=== PATIENT | female | born 1955 | race Caucasian/White ===

== ENCOUNTER → 2017-08-12 | Outpatient (CLI) | payer BC ==
[2017-08-12 11:57] LABS: Non-African American GFR(MDRD) >60 (>60 ml/min/1.73 sqM)
--- NOTE | 2017-08-12 12:01 | WWHP ---
[facility] - HISTORY AND PHYSICAL DATE OF DICTATION: 08/12/2017 CHIEF COMPLAINT: The patient is here for her routine gynecologic exam and mammogram. HPI: This is a 61-year-old G2, P2, with an LMP of 2002. The patient is without gynecologic complaints and denies any postmenopausal bleeding. The patient was diagnosed with osteoporosis with bone density testing last year. Fosamax was offered to the patient, but she did not start this. She is now interested in starting Fosamax for the osteoporosis. PAST MEDICAL HISTORY: Hypothyroidism, elevated cholesterol, depression, anxiety, migraine headaches, osteoporosis, and possible TIA in the past. PAST MEDICATIONS: 1. Simvastatin 40 mg daily. 2. Levothyroxine 100 mcg daily. 3. Citalopram 20 mg daily. 4. Aspirin 81 mg daily. 5. Vitamin D3 five thousand units every other day. ALLERGIES: No known drug allergies. PAST SURGICAL HISTORY: Tubal ligation and colonoscopy with upper endoscopy in 2014. 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 SOCIAL HISTORY: She denies tobacco and drug use and has about 3 alcohol containing drinks per month. She has been since 1976 and does not work outside the home. She has 2 grandchildren. FAMILY HISTORY: Father has coronary artery disease. Brother had an PR. Mother had a possible CVA. Brother of esophageal cancer. Paternal grandmother had breast cancer and a paternal grandmother had breast cancer. REVIEW OF SYSTEMS: Weight has been stable. She denies respiratory, cardiac or GI problems. PHYSICAL EXAM: Blood pressure 111/73, height 5 feet 6 inches, weight 161 pounds. BMI 26. Temperature 97.5, pulse 66. This is a well-developed, well-nourished, white female, who is alert and oriented x3, in no acute distress. HEENT is within normal limits. NECK: Supple without mass or thyromegaly. Chest and. LUNGS: Clear to auscultation. HEART: Regular rate and rhythm. Breasts are without mass or discharge. Axillary exam is negative for adenopathy. Back negative for CVA tenderness. ABDOMEN: Soft, nontender, without palpable masses. PELVIC EXAM: External genitalia reveals mild atrophy without lesions. Cervix and vagina reveals mild atrophy without lesions. There is no evidence of prolapse. The uterus is mid position, nongravid size and nontender. There are no palpable adnexal masses or tenderness. Rectovaginal exam is negative for mass or tenderness and is negative for occult blood. EXTREMITIES: Nontender. IMPRESSION: 1. A 61-year-old menopausal female with normal gynecologic exam. 2. History of osteoporosis. PLAN: 1. Pap smear was deferred since she had a normal one last year. 2. Self breast examination was discussed. 3. Mammogram will be done today. 4. We have had a long discussion regarding osteoporosis treatment. We have discussed possible risks of Fosamax including osteonecrosis of the jaw. We have also discussed risks of esophageal ulceration and I have stressed the importance of taking it according to the directions given. She would like to start Fosamax. Blood work today will include calcium level and creatinine. If these are normal, she will be started on Fosamax 70 mg 1 p.o. weekly and instructions on its use was given to the patient. 5. She will return in 1 year and we will plan on repeating bone density testing at that time. MMODL / IJN: [id number] /
--- NOTE | 2017-08-13 10:52 | MM ---
Reason for exam: screening (asymptomatic). Last mammogram was performed 1 year and 1 month ago. History: Patient is postmenopausal. Family history of breast cancer in maternal grandmother at age 30 and breast cancer in paternal grandmother at age 80. Physical Findings: A clinical breast exam by your physician is recommended on an annual basis and results should be correlated with mammographic findings. MG Screening Mammo w CAD Bilateral CC and MLO view(s) were taken. Prior study comparison: July 19, 2016, bilateral MG diagnostic mammo w CAD [facility]. July 17, 2015, bilateral MG screening mammo w CAD. The breast tissue is heterogeneously dense. This may lower the sensitivity of mammography. No significant changes when compared with prior studies. ASSESSMENT: Benign, BI-RAD 2 RECOMMENDATION: Routine screening mammogram of both breasts in 1 year.
== END | disposition home or self-care (01) ==
LOC: WWCWWP 10:09
PROVIDERS: ATTEND Obstetrics & Gynecology
DX: Z12.31 Encounter for screening mammogram for malignant neoplasm of breast (principal); M81.0 Age-related osteoporosis without current pathological fracture
CPT/HCPCS: 82310; 82565; 36415; G0202

== ENCOUNTER → 2018-07-21 | Outpatient (CLI) | payer BC ==
--- NOTE | 2018-07-21 14:09 | XR ---
2 view abdomen HISTORY: Constipation 2 views of the abdomen No comparisons Lung bases are clear. There is no evident pneumoperitoneum or bowel obstruction. Retained fecal debri s present throughout the distribution of the large bowel. Probable vascular calcifications in the pel vis. IMPRESSION: Correlate for fecal stasis.
== END | disposition home or self-care (01) ==
LOC: RADXRMAIN 09:52
PROVIDERS: ATTEND Family Medicine
DX: K59.09 Other constipation (principal)
CPT/HCPCS: 74019

== ENCOUNTER → 2018-08-18 | Outpatient (CLI) | payer BC ==
[2018-08-18 08:05] VITALS: BP 108/71; PULSE 72; TEMP 98; BMI 26.4
--- NOTE | 2018-08-18 08:38 | P.HPOB ---
History of Present Illness H&P Date: 08/18/18 Chief Complaint: The patient is here for her routine gynecologic exam and mammogram. This is a 62-year-old with LMP of 2002. The patient is without gynecologic complaints and denies any postmenopausal bleeding. The patient was started on Fosamax one year ago. Her prescription recently ran out. Review of Systems The patient has gained 3 pounds over the last year. She denies respiratory or cardiac problems. G.I.: occasional constipation. Past Medical History Past Medical History: CVA/TIA (Possible TIA in the past.), Hyperlipidemia, Thyroid Disorder (Hypothyroid) Additional Past Medical History / Comment(s): Migraine headaches and osteoporosis. 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 History of Any Multi-Drug Resistant Organisms: None Reported Past Surgical History: Tubal Ligation Additional Past Surgical History / Comment(s): Colonoscopy and upper endoscopy in 2014. Past Anesthesia/Blood Transfusion Reactions: No Reported Reaction, Motion Sickness Past Psychological History: Anxiety, Depression Smoking Status: Never smoker Past Alcohol Use History: Occasional (3 per month.) Past Drug Use History: None Reported Additional History: She has been since 1976 and does not work outside of the home. - Past Family History Brother(s) Family Medical History: Cancer (Esophageal), Myocardial Infarction ([place]) Father Family Medical History: Coronary Artery Disease (CAD) Additional Family Medical History / Comment(s): Paternal grand mother had breast cancer. Mother Family Medical History: CVA/TIA Medications and Allergies Home Medications Medication Instructions Recorded Confirmed Type Citalopram Hydrobromide [CeleXA] 20 mg PO DAILY 11/14/14 08/18/18 History Levothyroxine Sodium [Synthroid] 88 mcg PO DAILY 02/11/15 08/18/18 History Aspirin EC [Ecotrin] 81 mg PO DAILY tablet. 02/12/15 08/18/18 Rx Alendronate Sodium [Fosamax] 70 mg PO WEEKLY 08/18/18 08/18/18 History Cholecalciferol (Vitamin D3) 2,000 unit PO DAILY 08/18/18 08/18/18 History [Vitamin D3] Allergies Allergy/AdvReac Type Severity Reaction Status Date / Time No Known Allergies Allergy Verified 08/18/18 07:58 Exam Vital Signs Temp Pulse BP 08/18/18 07:56 98.0 F 72 108/71 Intake and Output 08/17/18 08/18/18 08/18/18 22:59 06:59 14:59 Other: Weight 74.389 kg Height 5'6", weight 164 pounds, BMI 26.5. This is a well-developed well-nourished white female who is alert and oriented times 3 in no acute distress. HEENT: Within normal limits. NECK: Supple without mass or thyromegaly. CHEST AND LUNGS: Clear to auscultation. HEART: Regular rate and rhythm. BREASTS: Are without mass or discharge. AXILLARY EXAM: Negative for adenopathy. BACK: Negative for CVA tenderness. ABDOMEN: Soft, nontender, without palpable masses. PELVIC EXAM: Normal external genitalia with mild atrophy. Cervix and vagina appear normal with mild atrophy. There is no unusual discharge. There is no evidence of prolapse. The uterus is midposition, nongravid size and nontender. There are no palpable adnexal masses or tenderness. RECTAL EXAM: rectovaginal exam is negative for mass or tenderness and is negative for occult blood. EXTREMITIES: Nontender. IMPRESSION: 1. 62-year-old menopausal female with normal gynecologic exam. 2. History of osteoporosis and has been on Fosamax for one year. PLAN: 1. Pap smear was performed. 2. Self breast awareness was discussed with the patient. 3. Screening mammogram will be done today. 4. Osteoporosis management was discussed. She will continue on Fosamax. Bone density testing will be done today. I have also stressed the importance of adequate calcium, vitamin D and regular exercise. 5. The electronic prescription for Fosamax will be sent to [facility]. 6. She will return in one year.
--- NOTE | 2018-08-18 17:31 | BD ---
EXAMINATION TYPE: Axial Bone Density DATE OF EXAM: 08/18/2018 COMPARISON: 07.19.2016 CLINICAL HISTORY: 62 YR OLD FEMALE....ICD-10 CODE: Z78.0 POST MENOPAUSAL W/O HRT Height: 65.5 Weight: 157 FRAX RISK QUESTIONS: NOTHING TO NOTE HERE RISK FACTORS HISTORY OF: Active: YES Diet low in dairy products/other sources of calcium: YES Postmenopausal woman: YES AT AGE 46 MEDICATIONS: Thyroid Medications: YES, SYNTHROID, FOR ABOUT 15-20 YRS Osteoporosis Medications: YES, FOSAMAX, FOR 1 YR Additional Medications: CELEXA, REFLUX MEDS, STATIN FOR CHOLESTEROL, VIT D Additional History: NOTHING ADDITIONAL TO NOTE EXAM MEASUREMENTS: Bone mineral densitometry was performed using the [employer] System. Bone mineral density as measured about the Lumbar spine is: ----- L1-L4(G/cm2): 1.049 T Score Values are as follows: ----- L1: -1.5 ----- L2: -1.4 ----- L3: -0.8 ----- L4: -0.9 ----- L1-L4: -1.1 Bone mineral density has: Increased 3.4% since study of: 07.19.2016 Bone mineral density about the R hip (g/cm2): 0.739 Bone mineral density about the L hip (g/cm2): 0.729 T Score values are as follows: -----R Neck: -2.5 -----L Neck: -2.3 -----R Total: -2.1 -----L Total: -2.2 Bone mineral density has: Increased 5.8% since study of: 07.19.2016 FRAX%s: THERE IS A 12.5% CHANCE FOR A MAJOR OSTEOPOROTIC FX AND A 2.4% FOR HIP FX....PROBABILITY O F FX IN 10 YRS TIME IMPRESSION: Osteopenia (T Score between -2.5 and -1). There is slightly increased risk of fracture and the patient may be considered for treatment. Re-Screen 2-5 years. NOTE: T-SCORE=SD OF THE YOUNG ADULT MEAN.
--- NOTE | 2018-08-19 14:59 | MM ---
Reason for exam: screening (asymptomatic). Last mammogram was performed 1 year ago. History: Patient is postmenopausal. Family history of breast cancer in maternal grandmother at age 30 and breast cancer in paternal grandmother at age 80. Physical Findings: A clinical breast exam by your physician is recommended on an annual basis and results should be correlated with mammographic findings. MG 3D Screening Mammo W/Cad Bilateral CC and MLO view(s) were taken. Prior study comparison: August 12, 2017, bilateral MG screening mammo w CAD. July 19, 2016, bilateral MG diagnostic mammo w CAD [facility]. The breast tissue is heterogeneously dense. This may lower the sensitivity of mammography. There is no discrete abnormality. No significant changes when compared with prior studies. ASSESSMENT: Benign, BI-RAD 2 RECOMMENDATION: Routine screening mammogram of both breasts in 1 year.
--- NOTE | 2018-08-25 13:38 | P.PN ---
Progress Note - Text Progress Note Date: 08/25/18 OUTPATIENT FOLLOW-UP NOTE TEST(S)/RESULTS: test results from 08/18/2018 include negative Pap smear, benign mammogram and bone density test which shows osteopenia with increases of 3.4% and 5.8% in the spine and hip measurements, respectively. METHOD OF NOTIFICATION: the patient was notified by phone. PATIENT COMMENTS: she is happy to hear these results. DIAGNOSIS: negative Pap smear, benign mammogram and history of osteoporosis with bone density improvement on alendronate for one year. DISCUSSION: we have discussed how we will plan to keep her on the alendronate for total of 3 to 5 years. I have also stressed the importance of getting adequate calcium, vitamin D and regular exercise. PLAN: will plan on repeating the bone density test in 2 to 3 years.
== END ==
LOC: WWCWWP 07:45
PROVIDERS: ATTEND Obstetrics & Gynecology
DX: M85.80 Other specified disorders of bone density and structure, unspecified site (principal); Z12.31 Encounter for screening mammogram for malignant neoplasm of breast; Z78.0 Asymptomatic menopausal state
CPT/HCPCS: 77063; 77067; 77080

== ENCOUNTER → 2019-08-24 | Outpatient (CLI) | payer BC ==
[2019-08-24 08:13] VITALS: BP 123/74; PULSE 68; RESP 16; TEMP 98.5
--- NOTE | 2019-08-24 08:44 | P.HPOB ---
History of Present Illness H&P Date: 08/24/19 Chief Complaint: The patient is here for her routine gynecologic exam and ma mmogram. This is a 63-year-old with an LMP of 2002. The patient is without gynecologic complaints and denies any postmenopausal bleeding. Review of Systems The patient's weight has been stable over the last year. She denies respiratory, cardiac, or G.I. problems. Past Medical History Past Medical History: CVA/TIA, Hyperlipidemia, Thyroid Disorder Additional Past Medical History / Comment(s): Possible TIA in the past. Hypothyroidism. Migraine headaches and osteoporosis(Rx 08/08). 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 History of Any Multi-Drug Resistant Organisms: None Reported Past Surgical History: Tubal Ligation Additional Past Surgical History / Comment(s): Colonoscopy and upper endoscopy in 2014. Past Anesthesia/Blood Transfusion Reactions: No Reported Reaction, Motion Sick ness Past Psychological History: Anxiety, Depression Smoking Status: Never smoker Past Alcohol Use History: Occasional (4-7 per week) Past Drug Use History: None Reported Additional History: She is been since 1976 and does not work outside the home. - Past Family History Father Family Medical History: Coronary Artery Disease (CAD) Additional Family Medical History / Comment(s): Paternal grand mother had breast cancer. Mother Family Medical History: CVA/TIA Brother(s) Family Medical History: Cancer, Myocardial Infarction ([place]) Additional Family Medical History / Comment(s): Esophageal cancer. Medications and Allergies Home Medications Medication Instructions Recorded Confirmed Type Citalopram Hydrobromide [CeleXA] 20 mg PO DAILY 11/14/14 08/24/19 History Levothyroxine Sodium [Synthroid] 88 mcg PO DAILY 02/11/15 08/24/19 History Aspirin EC [Ecotrin] 81 mg PO DAILY tablet. 02/12/15 08/24/19 Rx Alendronate Sodium [Fosamax] 70 mg PO WEEKLY #12 tablet 08/18/18 08/24/19 Rx Cholecalciferol (Vitamin D3) 1,000 unit PO DAILY 08/18/18 08/24/19 History [Vitamin D3] Simvastatin 40 mg PO DAILY 08/24/19 08/24/19 History Allergies Allergy/AdvReac Type Severity Reaction Status Date / Time No Known Allergies Allergy Verified 08/24/19 08:06 Exam Vital Signs Temp Pulse Resp BP Pulse Ox 08/24/19 08:11 98.5 F 68 16 123/74 97 Intake and Output 08/23/19 08/24/19 08/24/19 22:59 06:59 14:59 Other: Weight 73.482 kg Height 5 feet 6 inches, weight 162 pounds, BMI 26.1. This is a well-developed well-nourished white female who is alert and oriented times 3 in no acute distress. HEENT: Within normal limits. NECK: Supple without mass or thyromegaly. CHEST AND LUNGS: Clear to auscultation. HEART: Regular rate and rhythm. BREASTS: Are without mass or discharge. AXILLARY EXAM: Negative for adenopathy. BACK: Negative for CVA tenderness. ABDOMEN: Soft, nontender, without palpable masses. PELVIC EXAM: Normal external genitalia with mild atrophy. Cervix and vagina appear normal mild atrophy. There is no unusual discharge. There is a grade 2 uterine prolapse and grade 1-2 cystocele. The uterus is midposition, nongravid size and nontender. There are no palpable adnexal masses or tenderness. RECTAL EXAM: Rectovaginal exam is negative for mass or tenderness and is negative for occult blood. EXTREMITIES: Nontender. IMPRESSION: 1. 63-year-old menopausal female with a symptomatic grade 2 uterine prolapse and grade 1-2 cystocele. 2. History of osteoporosis on alendronate since July 2017. PLAN: 1. Pap smear was deferred since she had a normal one on 08/18/2018. 2. Self breast awareness was discussed with the patient. 3. Screening mammogram will be done today. 4. Osteoporosis prevention was discussed. I have stressed the importance of adequate calcium, vitamin D and regular exercise. Recommended amounts of calcium and vitamin D were also discussed. She will continue alendronate. The electronic prescription will be sent to [facility]. We will plan on repeating bone density testing in 1-2 years since it was last done on 08/18/2018. 5. She was notified about the slight uterine prolapse. This will be managed conservatively. 6. She was advised to return in one year for her annual well woman exam.
--- NOTE | 2019-08-25 10:23 | MM ---
Reason for exam: screening (asymptomatic). Last mammogram was performed 1 year ago. History: Patient is postmenopausal. Family history of breast cancer in maternal grandmother at age 30 and breast cancer in paternal grandmother at age 80. Physical Findings: A clinical breast exam by your physician is recommended on an annual basis and results should be correlated with mammographic findings. MG Screening Mammo w CAD Bilateral CC and MLO view(s) were taken. Prior study comparison: August 18, 2018, bilateral MG 3d screening mammo w/cad. August 12, 2017, bilateral MG screening mammo w CAD. The breast tissue is heterogeneously dense. This may lower the sensitivity of mammography. There is no discrete abnormality. No significant changes when compared with prior studies. ASSESSMENT: Negative, BI-RAD 1 RECOMMENDATION: Routine screening mammogram of both breasts in 1 year.
== END | disposition home or self-care (01) ==
LOC: WWCWWP 07:55
PROVIDERS: ATTEND Obstetrics & Gynecology
DX: Z12.31 Encounter for screening mammogram for malignant neoplasm of breast (principal)
CPT/HCPCS: 77067

== ENCOUNTER 2019-11-03 09:54 | Day surgery (SDC) | payer BC ==
[2019-11-01 16:01] VITALS: BMI 26.4
[~2019-11-03 09:54] MED LIST: LACTATED RINGERS 1,000 ML IV SCH; LIDOCAINE 1% 20 ML VIAL (10MG/ML) FOR IV START INTRADERMA PRN
[2019-11-03 10:51] VITALS: RESP 16; TEMP 97.3
[2019-11-03] MEDS ORDERED: PROPOFOL 10 MG/ML 20 ML VIAL IV ONE (11:12)
--- NOTE | 2019-11-03 11:29 | P.PCN ---
Date of Procedure: 11/03/19 Procedure(s) Performed: BRIEF HISTORY: Patient is a 64-year-old pleasant female scheduled for an elective colonoscopy as a part of evaluation of change in bowel habits for the last 2 years duration. PROCEDURE PERFORMED: Colonoscopy. PREOPERATIVE DIAGNOSIS: Change in bowel habits. IV sedation per Anesthesia. PROCEDURE: After informed consent was obtained, the patient, was brought into the endoscopy unit. IV sedation was administered by Anesthesia under continuous monitoring. Digital rectal examination was normal. Initially the Olympus CF-160 flexible video colonoscope was then inserted in the rectum, gradually advanced into the cecum without any difficulty. Careful examination was performed as the scope was gradually being withdrawn. Ileocecal valve and the appendiceal orifice were visualized and appeared normal. Prep was excellent. Mucosa of the cecum, ascending colon, transverse colon, descending colon, sigmoid colon, and rectum appeared normal. Retroflexion was performed in the rectum and no lesions were seen. The patient tolerated the procedure well. IMPRESSION: Normal-appearing colon from rectum to cecum with no evidence of colitis or colorectal neoplasia . RECOMMENDATIONS: Findings of this examination were discussed with the patient as well as a family. She was advised to be a high-fiber diet and take fiber supplements a regular basis. She was advised to use [id number] osmotic laxatives as needed.. He can have a repeat screening colonoscopy in 10 years
[2019-11-03 12:01] VITALS: BP 128/60; PULSE 61
== END 2019-11-03 12:17 | disposition home or self-care (01) ==
LOC: ORWHC2ENDO 09:54
PROVIDERS: ATTEND Internal Medicine Gastroenterology
DX: R19.4 Change in bowel habit (principal); F32.9 Major depressive disorder, single episode, unspecified; Z79.82 Long term (current) use of aspirin; Z79.890 Hormone replacement therapy; Z79.899 Other long term (current) drug therapy; Z98.51 Tubal ligation status
CPT/HCPCS: 45378; J2704

== ENCOUNTER → 2020-09-12 | Outpatient (CLI) | payer BC ==
[2020-09-12 08:12] VITALS: BP 111/74; PULSE 83; RESP 18; TEMP 97.9
--- NOTE | 2020-09-12 08:47 | P.HPOB ---
History of Present Illness H&P Date: 09/12/20 Chief Complaint: The patient is here for her routine gynecologic exam and ma mmogram. This is a 64-year-old with an LMP of 2002. The patient is without gynecologic complaints and denies any postmenopausal bleeding. Review of Systems The patient has gained 4 pounds over the last year. She denies respiratory, cardiac, or G.I. problems. Past Medical History Past Medical History: CVA/TIA, GERD/Reflux, Hyperlipidemia, Musculoskeletal Disorder, Thyroid Disorder Additional Past Medical History / Comment(s): Possible TIA in the past. Hypothyroidism. Old hx Migraine CASEY. Oosteoporosis (Rx 08/08). Chronic Constipation. 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 Cryotherapy of the cervix in her 20s. History of Any Multi-Drug Resistant Organisms: None Reported Past Surgical History: Tubal Ligation Additional Past Surgical History / Comment(s): Colonoscopy, and upper endoscopy in 2014. Cataracts Past Anesthesia/Blood Transfusion Reactions: No Reported Reaction, Motion Sickness Past Psychological History: Anxiety, Depression Smoking Status: Never smoker Past Alcohol Use History: Occasional (4 per week) Past Drug Use History: None Reported Additional History: She has been since 1976 and is retired. - Past Family History Father Family Medical History: Coronary Artery Disease (CAD) Additional Family Medical History / Comment(s): Paternal grand mother had breast cancer. Mother Family Medical History: CVA/TIA Brother(s) Family Medical History: Cancer, Myocardial Infarction ([place]) Additional Family Medical History / Comment(s): Esophageal cancer. Medications and Allergies Home Medications Medication Instructions Recorded Confirmed Type Citalopram Hydrobromide [CeleXA] 20 mg PO DAILY 11/14/14 09/12/20 History Levothyroxine Sodium [Synthroid] 88 mcg PO DAILY 02/11/15 09/12/20 History Aspirin EC [Ecotrin] 81 mg PO DAILY tablet. 02/12/15 09/12/20 Rx Cholecalciferol (Vitamin D3) 1,000 unit PO DAILY 08/18/18 09/12/20 History [Vitamin D3] Alendronate Sodium [Fosamax] 70 mg PO WEEKLY #12 tablet 08/24/19 09/12/20 Rx Simvastatin 40 mg PO HS 08/24/19 09/12/20 History Linaclotide [Linzess] 145 mcg PO QAM 09/12/20 09/12/20 History Allergies Allergy/AdvReac Type Severity Reaction Status Date / Time No Known Allergies Allergy Verified 09/12/20 08:07 Exam Vital Signs Temp Pulse Resp BP Pulse Ox 09/12/20 08:09 97.9 F 83 18 111/74 98 Intake and Output 09/11/20 09/12/20 09/12/20 22:59 06:59 14:59 Other: Weight 75.296 kg Height 5 feet 6 inches, weight 166 pounds, BMI 26.8. This is a well-developed well-nourished white female who is alert and oriented times 3 in no acute distress. HEENT: Within normal limits. NECK: Supple without mass or thyromegaly. CHEST AND LUNGS: Clear to auscultation. HEART: Regular rate and rhythm. BREASTS: Are without mass or discharge. AXILLARY EXAM: Negative for adenopathy. BACK: Negative for CVA tenderness. ABDOMEN: Soft, nontender, without palpable masses. PELVIC EXAM: Normal external genitalia with mild atrophy. There is minimal erythema in the left groin crease and she states she has been using a jock itch cream which has helped with this. Cervix and vagina appear normal mild atrophy. There is no unusual discharge. There is a stable grade 2 uterine prolapse and a grade 1 cystocele noted.. The uterus is midposition, nongravid size and nontender. There are no palpable adnexal masses or tenderness. RECTAL EXAM: Rectovaginal exam is negative for mass or tenderness and is negative for occult blood. EXTREMITIES: Nontender. IMPRESSION: 1. 64-year-old menopausal female with a stable grade 2 uterine prolapse which is asymptomatic. Minimal cystocele is noted. 2. History of osteoporosis and has been on alendronate for approximately 3 years. PLAN: 1. Pap smear cotest was performed. 2. Self breast awareness was discussed with the patient. 3. Screening mammogram will be done today. 4. Osteoporosis management was discussed. I have stressed the importance of adequate calcium, vitamin D and regular exercise. Recommended amounts of calcium and vitamin D were also discussed. She will continue on alendronate and she has gotten the prescription through her PCP. We will repeat a bone density test today since it has been about 2 years since her last one. 5. She was advised to return in one year for her annual well woman exam.
--- NOTE | 2020-09-12 15:01 | BD ---
EXAMINATION TYPE: Axial Bone Density DATE OF EXAM: 09/12/2020 COMPARISON: 07.19.2016 CLINICAL HISTORY: 64 YR OLD FEMALE....ICD-10 CODE: Z78.0 POST MENOPAUSAL Height: 65 Weight: 162 FRAX RISK QUESTIONS: NOTHING TO NOTE HERE RISK FACTORS HISTORY OF: Diet low in dairy products/other sources of calcium: YES Postmenopausal woman: YES, AT ABOUT 46 YRS OLD Hyperparathyroidism: NO Adrenal Insufficiency: NO MEDICATIONS: Thyroid Medications: YES, SYNTHROID, FOR ABOUT 20 YRS Osteoporosis Medications: YES, FOSAMAX, FOR ABOUT 2 YRS Additional Medications: CITALOPRAM, REFLUX MEDS, STATIN FOR CHOLESTEROL, VIT D Additional History: REFLUX, CHOLESTEROL EXAM MEASUREMENTS: Bone mineral densitometry was performed using the [employer] System. Bone mineral density as measured about the Lumbar spine is: ----- L1-L4(G/cm2): 1.100 T Score Values are as follows: ----- L1: -1.1 ----- L2: -0.8 ----- L3: 0.0 ----- L4: -0.9 ----- L1-L4: -0.7 Bone mineral density has: Increased 8.3% since study of: 07.19.2016 Bone mineral density about the R hip (g/cm2): 0.756 Bone mineral density about the L hip (g/cm2): 0.744 T Score values are as follows: -----R Neck: -1.9 -----L Neck: -2.3 -----R Total: -2.0 -----L Total: -2.1 Bone mineral density has: Increased 8.1% since study of: 07.19.2016 FRAX%s: THERE IS A 12.0% CHANCE FOR A MAJOR OSTEOPOROTIC FX AND A 2.2% FOR HIP......PROBABILITY FO R FX IN 10 YRS TIME IMPRESSION: Osteopenia (T Score between -2.5 and -1). There is slightly increased risk of fracture and the patient may be considered for treatment. Re-Screen 2-5 years. NOTE: T-SCORE=SD OF THE YOUNG ADULT MEAN.
--- NOTE | 2020-09-13 11:20 | MM ---
Reason for exam: screening (asymptomatic). Last mammogram was performed 1 year and 1 month ago. History: Patient is postmenopausal. Family history of breast cancer in maternal grandmother at age 30 and breast cancer in paternal grandmother at age 80. Physical Findings: A clinical breast exam by your physician is recommended on an annual basis and results should be correlated with mammographic findings. MG 3D Screening Mammo W/Cad Bilateral CC and MLO view(s) were taken. Prior study comparison: August 24, 2019, bilateral MG screening mammo w CAD. August 18, 2018, bilateral MG 3d screening mammo w/cad. The breast tissue is heterogeneously dense. This may lower the sensitivity of mammography. No significant changes when compared with prior studies. ASSESSMENT: Benign, BI-RAD 2 RECOMMENDATION: Routine screening mammogram of both breasts in 1 year.
== END | disposition home or self-care (01) ==
LOC: WWCWWP 07:56
PROVIDERS: ATTEND Obstetrics & Gynecology
DX: Z12.31 Encounter for screening mammogram for malignant neoplasm of breast (principal); M85.80 Other specified disorders of bone density and structure, unspecified site; Z78.0 Asymptomatic menopausal state
CPT/HCPCS: 77063; 77067; 77080

== ENCOUNTER → 2021-09-18 | Outpatient (CLI) | payer MEDICARE, BC ==
[2021-09-18 08:07] VITALS: BP 123/75; PULSE 64; RESP 18; TEMP 98.4
--- NOTE | 2021-09-18 08:40 | P.HPOB ---
History of Present Illness H&P Date: 09/18/21 Chief Complaint: The patient is here for her routine gynecologic exam and ma mmogram. This is a 65-year-old with an LMP of 2002. The patient is without gynecologic complaints. Review of Systems She has gained 2 pounds over the past year. She denies respiratory or cardiac problems. GI: Occasional gastric reflux. Past Medical History Past Medical History: CVA/TIA, GERD/Reflux, Hyperlipidemia, Musculoskeletal Disorder, Thyroid Disorder Additional Past Medical History / Comment(s): Possible TIA in the past. Hypothyroidism. Old hx Migraine CASEY. Oosteoporosis (Rx 08/08). Chronic Constipation. 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 Cryotherapy of the cervix in her 20s. History of Any Multi-Drug Resistant Organisms: None Reported Past Surgical History: Tubal Ligation Additional Past Surgical History / Comment(s): Colonoscopy with upper endoscopy in 2014. Colonoscopy 2019. Cataracts Past Anesthesia/Blood Transfusion Reactions: No Reported Reaction, Motion Sickness Past Psychological History: Anxiety, Depression Smoking Status: Never smoker Past Alcohol Use History: Occasional (2-4 drinks per week) Past Drug Use History: None Reported Additional History: She has been since 1976 and is retired. - Past Family History Father Family Medical History: Coronary Artery Disease (CAD) Additional Family Medical History / Comment(s): Paternal grand mother had breast cancer. Mother Family Medical History: CVA/TIA Brother(s) Family Medical History: Cancer, Myocardial Infarction ([place]) Additional Family Medical History / Comment(s): Esophageal cancer. Another brother had cardiac valve replacement surgery. Medications and Allergies Home Medications Medication Instructions Recorded Confirmed Type Citalopram Hydrobromide [CeleXA] 10 mg PO DAILY 11/14/14 09/18/21 History Levothyroxine Sodium [Synthroid] 88 mcg PO DAILY 02/11/15 09/18/21 History Aspirin EC [Ecotrin] 81 mg PO DAILY tablet. 02/12/15 09/18/21 Rx Cholecalciferol (Vitamin D3) 1,000 unit PO DAILY 08/18/18 09/18/21 History [Vitamin D3] Alendronate Sodium [Fosamax] 70 mg PO WEEKLY #12 tablet 08/24/19 09/18/21 Rx Simvastatin 40 mg PO HS 08/24/19 09/18/21 History Linaclotide [Linzess] 145 mcg PO QAM 09/12/20 09/18/21 History Allergies Allergy/AdvReac Type Severity Reaction Status Date / Time No Known Allergies Allergy Verified 09/18/21 07:59 Exam Vital Signs Temp Pulse Resp BP Pulse Ox 09/18/21 08:02 98.4 F 64 18 123/75 98 Intake and Output 09/17/21 09/18/21 09/18/21 22:59 06:59 14:59 Other: Weight 76.204 kg Height 5 feet 6 inches, weight 168 pounds, BMI 27.1. This is a well-developed well-nourished white female who is alert and oriented times 3 in no acute distress. HEENT: Within normal limits. NECK: Supple without mass or thyromegaly. CHEST AND LUNGS: Clear to auscultation. HEART: Regular rate and rhythm. BREASTS: Are without mass or discharge. AXILLARY EXAM: Negative for adenopathy. BACK: Negative for CVA tenderness. ABDOMEN: Soft, nontender, without palpable masses. PELVIC EXAM: Normal external genitalia with mild atrophy. Cervix and vagina appear normal with mild atrophy. There is no unusual discharge. There is a grade 2 uterine prolapse which is stable. There is also a grade 1-2 cystocele noted. There is no significant rectocele. The uterus is midposition, nongravid size and nontender. There are no palpable adnexal masses or tenderness. RECTAL EXAM: Rectovaginal exam is negative for mass or tenderness and is negative for occult blood. EXTREMITIES: Nontender. IMPRESSION: 1. 65-year-old menopausal female with stable grade 2 uterine prolapse and small cystocele. This is asymptomatic. 2. History of osteoporosis and she has been on Fosamax for 4 years. PLAN: 1. Pap smear was deferred since she had a normal Pap smear cotest on 09/12/2020. We will plan on repeating a Pap smear in approximately 3 years. If that one is negative, we we'll have 3 negative Pap smears in a row and we will plan on discontinuing them at that point. 2. Self breast awareness was discussed with the patient. We have also discussed symptoms associated with inflammatory breast cancer. 3. Screening mammogram will be done today. 4. Osteoporosis management was discussed. I have stressed the importance of adequate calcium, vitamin D and regular exercise. Recommended amounts of calcium and vitamin D were also discussed. In one year we will plan on discont inuing the Fosamax and repeating the bone density testing. The electronic prescription for the Fosamax will be sent to [facility]. 5. She has completed her Covid vaccination series and has received her booster. 6. She was advised to return in one year for her annual well woman exam.
== END ==
LOC: WWCWWP 07:52
PROVIDERS: ATTEND Obstetrics & Gynecology
DX: Z12.31 Encounter for screening mammogram for malignant neoplasm of breast (principal); N81.4 Uterovaginal prolapse, unspecified; E78.5 Hyperlipidemia, unspecified; E03.9 Hypothyroidism, unspecified; F41.9 Anxiety disorder, unspecified; F32.A Depression, unspecified; Z79.890 Hormone replacement therapy; Z98.890 Other specified postprocedural states; Z87.310 Personal history of (healed) osteoporosis fracture; Z86.73 Personal history of transient ischemic attack (TIA), and cerebral infarction without residual deficits; Z79.899 Other long term (current) drug therapy
CPT/HCPCS: 77063; 77067

== ENCOUNTER → 2022-05-28 | Outpatient (CLI) | payer MEDICARE ==
[2022-05-28 08:55] VITALS: BP 122/62; PULSE 67; RESP 16; TEMP 98.4
--- NOTE | 2022-05-28 09:32 | P.PN ---
Progress Note - Text Progress Note Date: 05/28/22 Chief Complaint: 2 days of spotting from the vaginal area about 3 weeks ago. HPI:This is a 66-year-old with an LMP of 2002. The patient states she had 2 days of light spotting from the vaginal area 3 weeks ago. She has not had any since then. She thinks the blood may have come from the vulva. She has noticed some slight itching for about 3 months and has had some relief with hydrocortisone. She has also noticed slight itching at the areas of the inner thighs. She denies vaginal discharge or vaginal odor. ROS: She is lost about 18 pounds of the past 10 months. She denies respiratory or cardiac problems. GI: Occasional constipation. She does not believe the blood came from the rectal area. :. See the HPI. She denies urinary symptoms and she does not believe the spotting came from the urine. PE: Blood pressure: 122/62, Height: 5 feet 6 inches, Weight: 150 pounds, Temperature: 98.4, Pulse: 67. Pulse oximeter 99%. This is a well developed, well nourished, white female who is alert and orientedx3, in no acute distress. External genitalia: Mild to moderate atrophy with slight generalized erythema and bilateral petechiae on the labia majora possibly consistent with scratching. There are no open cuts or ulceration. There is no significant pallor. There is a small urethral caruncle which appears benign and there is no bleeding from this. Cervix and vagina appear normal with mild atrophy. There is no unusual discharge or evidence of blood. There is no cervical motion tenderness. The uterus is atrophic, midposition and nontender. There are no palpable adnexal masses or tenderness. Impression: 1. 66-year-old menopausal female with 2 days of spotting from the genital area. Differential diagnosis will include vulvar bleeding from scratching, bleeding from in irritated urethral caruncle, or possible uterine bleeding. 2. Mild atrophic vulvitis with some vulvar pruritus. Currently I doubt lichen sclerosus of the vulva since there was no significant pallor. Plan: 1. Pelvic ultrasound will be scheduled. The order slip was given to the [facility] ent for this. If thickening of the endometrium, consider endometrial sampling. 2. Kenalog 0.1% cream twice a day as needed for vulvar pruritus. She was also instructed to avoid over washing and also avoid scratching and rubbing. The electronic prescription will be sent to my her pharmacy in [place]. 3. She will return around the new year for her annual well woman examination and sooner if problems. Time spent with the patient: 25 minutes
== END ==
LOC: WWCWWP 08:37
PROVIDERS: ATTEND Obstetrics & Gynecology
DX: N93.9 Abnormal uterine and vaginal bleeding, unspecified (principal); N76.2 Acute vulvitis; L29.2 Pruritus vulvae; Z78.0 Asymptomatic menopausal state

== ENCOUNTER → 2022-06-03 | Outpatient (CLI) | payer MEDICARE ==
--- NOTE | 2022-06-04 08:59 | US ---
EXAMINATION TYPE: US pelvis complete transvag DATE OF EXAM: 06/03/2022 COMPARISON: NONE CLINICAL HISTORY: N95.0 PMB. Spotting x few days. No pain. TECHNIQUE: . Transabdominal sonographic images of the pelvis were acquired. 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 Uterus: Anteverted Heterogenous. Peripheral echogenic foci. 2. Endometrium: wnl 3. Right Ovary: Obscured by overlying bowel gas 4. Left Ovary: Obscured by overlying bowel gas 5. Bilateral Adnexa: Peristalsing bowel. Prominent vessels. 6. Posterior cul-de-sac: no free fluid IMPRESSION: Nonspecific uterine myometrial heterogeneity.
--- NOTE | 2022-06-05 09:11 | P.PN ---
Progress Note - Text Progress Note Date: 06/05/22 OUTPATIENT FOLLOW-UP NOTE TEST(S)/RESULTS: Pelvic ultrasound done on 06/03/2022 was unremarkable and the endometrial stripe was 0.2 cm, within normal limits for a menopausal woman. METHOD OF NOTIFICATION: The patient was notified by phone. PATIENT COMMENTS: The patient has not had any more bleeding from the vaginal area and has had less vulvar pruritus. DIAGNOSIS: Small postmenopausal genital bleeding, probably from the vulva secondary to vulvitis. DISCUSSION: She will use the Kenalog cream as directed. She'll call she's having recurrent leading or problems. PLAN: As above. She will be due for her annual well woman examination at the end of August or early September.
== END | disposition home or self-care (01) ==
LOC: RADUSWWP 16:09
PROVIDERS: ATTEND Obstetrics & Gynecology
DX: N95.0 Postmenopausal bleeding (principal)
CPT/HCPCS: 76830; 76856

== ENCOUNTER → 2022-12-25 | Outpatient (CLI) | payer MEDICARE ==
[2022-12-25 11:21] VITALS: BP 126/79; PULSE 84; RESP 16; TEMP 98.2
--- NOTE | 2022-12-25 12:59 | P.HPOB ---
History of Present Illness H&P Date: 12/25/22 Chief Complaint: The patient is here for her routine gynecologic exam and ma mmogram. This is a 67-year-old with an LMP of 2002. The patient has been infrequently sexually active because of dryness and discomfort with intercourse. She had a small amount of spotting from the genital area in May 2022 and this was felt to most likely be vulvar in nature since the endometrial thickness was 2 mm. She used Kenalog cream at that time and she denies any recurrent b leeding. Review of Systems She has lost about 10 pounds. She denies respiratory, cardiac, or GI problems. Past Medical History Past Medical History: CVA/TIA, GERD/Reflux, Hyperlipidemia, Musculoskeletal Disorder, Thyroid Disorder Additional Past Medical History / Comment(s): Possible TIA in the past. Hyp othyroidism. Old hx Migraine CASEY. Oosteoporosis (Rx 08/08). Chronic Constipation. 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 Cryotherapy of the cervix in her 20s. History of Any Multi-Drug Resistant Organisms: None Reported Past Surgical History: Tubal Ligation Additional Past Surgical History / Comment(s): Colonoscopy with upper endoscopy in 2014. Colonoscopy 2018. Cataracts Past Anesthesia/Blood Transfusion Reactions: No Reported Reaction, Motion Sickness Past Psychological History: Anxiety, Depression Smoking Status: Never smoker Past Alcohol Use History: Occasional (2-4 drinks per week) Past Drug Use History: None Reported Additional History: She has been since 1976 and is infrequently sexually active. She is retired. - Past Family History Father Family Medical History: Coronary Artery Disease (CAD) Additional Family Medical History / Comment(s): Paternal grand mother had breast cancer. Mother Family Medical History: CVA/TIA Brother(s) Family Medical History: Cancer, Myocardial Infarction ([place]) Additional Family Medical History / Comment(s): Esophageal cancer. Another brother had cardiac valve replacement surgery. Medications and Allergies Home Medications Medication Instructions Recorded Confirmed Type Citalopram Hydrobromide [CeleXA] 10 mg PO DAILY 11/14/14 12/25/22 History Levothyroxine Sodium [Synthroid] 88 mcg PO DAILY 02/11/15 12/25/22 History Aspirin EC [Ecotrin] 81 mg PO DAILY tablet. 02/12/15 12/25/22 Rx Cholecalciferol (Vitamin D3) 1,000 unit PO DAILY 08/18/18 12/25/22 History [Vitamin D3] Simvastatin 40 mg PO HS 08/24/19 12/25/22 History Linaclotide [Linzess] 145 mcg PO QAM 09/12/20 12/25/22 History Alendronate Sodium [Fosamax] 70 mg PO WEEKLY #12 tablet 09/18/21 12/25/22 Rx Multivitamin [Multivitamins Adult 2 each PO DAILY 05/28/22 12/25/22 History Gummies] Triamcinolone 0.1% Cream [Kenalog 1 applicatio TOPICAL BID PRN #30 gm 05/28/22 12/25/22 Rx 0.1% Cream] Allergies Allergy/AdvReac Type Severity Reaction Status Date / Time No Known Allergies Allergy Verified 12/25/22 11:12 Exam Vital Signs Temp Pulse Resp BP Pulse Ox 12/25/22 11:19 98.2 F 84 16 126/79 98 Intake and Output 12/24/22 12/25/22 12/25/22 22:59 06:59 14:59 Other: Weight 68.946 kg Height 5 feet 6 inches, weight 152 pounds, BMI 24.5. This is a well-developed well-nourished white female who is alert and oriented times 3 in no acute distress. HEENT: Within normal limits. NECK: Supple without mass or thyromegaly. CHEST AND LUNGS: Clear to auscultation. HEART: Regular rate and rhythm. BREASTS: Are without mass or discharge. AXILLARY EXAM: Negative for adenopathy. BACK: Negative for CVA tenderness. ABDOMEN: Soft, nontender, without palpable masses. PELVIC EXAM: Normal external genitalia reveals mild to moderate atrophy without lesions. There is a small urethral caruncle appears benign and noninflamed. Cervix and vagina appear normal with mild to moderate atrophy. There is no unusual discharge. There is a grade 2 uterine prolapse and grade 2 cystocele which are stable from previous exams.. The uterus is midposition, nongravid size and nontender. There are no palpable adnexal masses or tenderness. RECTAL EXAM: Rectovaginal exam is negative for mass or tenderness and is negative for occult blood. EXTREMITIES: Nontender. IMPRESSION: 1. 67-year-old menopausal female with stable grade 2 uterine prolapse and grade 2 cystocele which are asymptomatic. 2. 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 3. History of osteoporosis status post 5 years use of alendronate. 4. Benign-appearing small urethral caruncle. PLAN: 1. Pap smear was deferred since she had a negative Pap smear cotest on 09/12/2020. We will plan on repeating this next year and if this is negative, we will plan on discontinuing Pap smears since we will have 3 negative Pap smears in a row. 2. Self breast awareness was discussed with the patient. We have also discussed symptoms associated with inflammatory breast cancer. 3. Screening mammogram will be done today. 4. Trial of Premarin vaginal cream 1 g into the vagina 2 times weekly. A sample tube was given to the patient. The electronic prescription will be sent to my her pharmacy in [place]. 5. Osteoporosis management was discussed. I have stressed the importance of adequate calcium, vitamin D and regular exercise. Recommended amounts of calcium and vitamin D were also discussed. We will repeat her bone density testing in the near future. The order slip was given to the patient for this. We will plan on discontinuing the alendronate after she has completed the pills that she has. She has been on it for approximate 5 years. 6. She was advised to return in one year for her annual well woman exam and as needed.
--- NOTE | 2022-12-26 08:41 | MM ---
Reason for Exam: Screening (asymptomatic). Last mammogram was performed 1 year(s) and 4 month(s) ago. Patient History: Menarche at age 11. First Full-Term at age 25. Postmenopausal. Patient has history of breast feeding. Paternal grandmother had breast cancer, age 80. Maternal grandmother had breast cancer, age 30. Risk Values: Yu 5 year model risk: 2.1%. NCI Lifetime model risk: 7.0%. Prior Study Comparison: 08/12/2017 Bilateral Screening Mammogram, [facility]. 08/18/2018 Bilateral Screening Mammogram, [facility]. 08/24/2019 Bilateral Screening Mammogram, [facility]. 09/12/2020 Bilateral Screening Mammogram, [facility]. 09/18/2021 Bilateral Screening Mammogram, [facility]. Tissue Density: The breast tissue is heterogeneously dense. This may lower the sensitivity of mammography. Findings: Analyzed By CAD. There is no suspicious group of microcalcifications or new suspicious mass in either breast. Overall Assessment: Benign, BI-RAD 2 Management: Screening Mammogram of both breasts in 1 year. A clinical breast exam by your physician is recommended on an annual basis and results should be correlated with mammographic findings. Electronically signed and approved by: Willi Gunn M.D. Radiologis
== END ==
LOC: WWCWWP 11:03
PROVIDERS: ATTEND Obstetrics & Gynecology
DX: N95.1 Menopausal and female climacteric states (principal); Z12.31 Encounter for screening mammogram for malignant neoplasm of breast; N81.2 Incomplete uterovaginal prolapse; N94.10 Unspecified dyspareunia; N36.2 Urethral caruncle; M81.0 Age-related osteoporosis without current pathological fracture; E03.9 Hypothyroidism, unspecified; E78.5 Hyperlipidemia, unspecified; F32.A Depression, unspecified; K21.9 Gastro-esophageal reflux disease without esophagitis; N81.4 Uterovaginal prolapse, unspecified; Z79.82 Long term (current) use of aspirin; Z80.3 Family history of malignant neoplasm of breast; Z82.3 Family history of stroke; Z82.49 Family history of ischemic heart disease and other diseases of the circulatory system; Z86.73 Personal history of transient ischemic attack (TIA), and cerebral infarction without residual deficits; Z79.890 Hormone replacement therapy
CPT/HCPCS: 77063; 77067

== ENCOUNTER → 2023-01-01 | Outpatient (CLI) | payer MEDICARE ==
--- NOTE | 2023-01-01 10:14 | BD ---
EXAMINATION TYPE: Axial Bone Density DATE OF EXAM: 01/01/2023 CLINICAL HISTORY: 67 years old Female. ICD-10 CODE: Z78.0 ASYMPTOMATIC MENOPAUSAL STATE Height: 65 Weight: 148 FRAX RISK QUESTIONS: Family History (Parent hip fracture): no History of Fracture in Adulthood: no Secondary Osteoporosis: no Rheumatoid Arthritis: no RISK FACTORS HISTORY OF: Family History of Osteoporosis: no Active: yes Diet low in dairy products/other sources of calcium: yes Postmenopausal woman: yes, age 46 Lost more than 2 inches in height since high school: no Frequent falls: no Poor Health: no MEDICATIONS: Thyroid Medications: yes Which medication: Synthroid How Lon+ years Osteoporosis Medications: yes Which medication: Fosamax How Lon years Additional Medications: yes cholesterol meds, EXAM MEASUREMENTS: Bone mineral densitometry was performed using the [employer] System. Bone mineral density as measured about the Lumbar spine is: ----- L1-L4(G/cm2): 1.029 T Score Values are as follows: ----- L1: -1.7 ----- L2: -1.5 ----- L3: -0.5 ----- L4: -1.6 ----- L1-L4: -1.3 Z Score Values are as follows: ----- L1: -0.1 ----- L2: 0.1 ----- L3: 1.0 ----- L4: -0.1 ----- L1-L4: 0.3 Bone mineral density has: Decreased -6.5% since study of: 09/12/2020 Bone mineral density about the R hip (g/cm2): 0.769 Bone mineral density about the L hip (g/cm2): 0.716 T Score values are as follows: -----R Neck: -2.1 -----L Neck: -2.4 -----R Total: -1.9 -----L Total: -2.3 Z Score values are as follows: -----R Neck: -0.6 -----L Neck: -0.9 -----R Total: -0.6 -----L Total: -1.1 Bone mineral density has: Decreased -0.9% since study of: 09/12/2020 FRAX%s: The graph provided illustrates a 13.5% chance for a major osteoporotic fx and a 2.9% chance f or the hips probability for fx in 10 years time. IMPRESSION: Osteopenia (T Score between -2.5 and -1). There is slightly increased risk of fracture and the patient may be considered for treatment. Re-Screen 2-5 years. NOTE: T-SCORE=SD OF THE YOUNG ADULT MEAN.
== END | disposition home or self-care (01) ==
LOC: RADBDWWP 08:34
PROVIDERS: ATTEND Obstetrics & Gynecology
DX: M85.89 Other specified disorders of bone density and structure, multiple sites (principal); Z78.0 Asymptomatic menopausal state
CPT/HCPCS: 77080

== ENCOUNTER 2023-07-18 11:19 | Day surgery (SDC) | payer MEDICARE ==
[~2023-07-18 11:19] MED LIST changes: -LIDOCAINE 1% 20 ML VIAL (10MG/ML) FOR IV START INTRADERMA PRN
[2023-07-18] MEDS ORDERED: LACTATED RINGERS 1,000 ML IV ONE (12:55)
[2023-07-18 13:17] VITALS: RESP 16; TEMP 98.3
[2023-07-18] MEDS ORDERED: LIDOCAINE 1% INJ 10MG/ML (20 ML MDV) ONE (13:50)
[2023-07-18] MEDS ORDERED: PROPOFOL 10 MG/ML 20 ML VIAL IV ONE (13:50)
--- NOTE | 2023-07-18 14:11 | P.PCN ---
Date of Procedure: 07/18/23 Procedure(s) Performed: Brief history: Patient is a pleasant 67-year-old white female scheduled for an elective upper endoscopy as well as colonoscopy as a part of evaluation of GERD and change in bowel habits Procedure performed: Esophagogastroduodenoscopy with biopsy Colonoscopy Preoperative diagnosis: GERD Change in bowel habits Anesthesia: MAC Procedure: After informed consent was obtained from the patient was brought into the endoscopy unit and IV sedation was administered by anesthesia under continuous monitoring. Initially upper endoscopy was done. The Olympus GF 160 video endoscope was inserted inserted into the mouth and esophagus intubated without any difficulty and was gradually advanced into the stomach and duodenum and carefully examined. The bulb and second part of the duodenum appeared normal. Biopsies were done from the duodenum to rule out celiac disease. The scope was then withdrawn into the stomach adequately insufflated with air and upon careful examination the antrum and body, cardia and fundus appeared normal. The scope was then withdrawn into the esophagus. The GE junction was located at 40 cm to the incisors. It appeared regular with no erythema erosions or ulcerations. Rest of the esophagus appeared normal. Patient tolerated the procedure well. At this time the patient continued to remain sedation. Initial digital rectal examination was normal. Olympus CF 160 video colonoscope was then inserted into the rectum and gradually advanced to the cecum without any difficulty. Careful examination was performed as the scope was gradually being withdrawn. The prep was excellent. The cecum, ascending colon, transverse colon, descending colon, sigmoid colon and rectum appeared normal. Retroflexion was performed in the rectum and no lesions were noted. Patient tolerated the procedure well. Impression: 1. Upper endoscopy revealed small hiatal hernia but no evidence of esophagitis or Williamson's esophagus 2. Colonoscopy was within normal limits with no evidence of colorectal neoplasia Recommendations: Findings of this examination were discussed with the patient as well as her family. She was advised to follow with the biopsy results. Continue with Pepcid 20 mg as needed and follow antireflux measures. Recommend repeat screening colonoscopy in 10 years.
[2023-07-18 14:40] VITALS: BP 124/74; PULSE 58
== END 2023-07-18 14:45 | disposition home or self-care (01) ==
LOC: ORWHC2ENDO 11:19
PROVIDERS: ATTEND Internal Medicine Gastroenterology
DX: K44.9 Diaphragmatic hernia without obstruction or gangrene (principal); K21.9 Gastro-esophageal reflux disease without esophagitis; R19.4 Change in bowel habit; I10 Essential (primary) hypertension; E78.5 Hyperlipidemia, unspecified; E03.9 Hypothyroidism, unspecified; G43.909 Migraine, unspecified, not intractable, without status migrainosus; F41.9 Anxiety disorder, unspecified; Z79.01 Long term (current) use of anticoagulants; Z79.899 Other long term (current) drug therapy; Z79.891 Long term (current) use of opiate analgesic; Z86.73 Personal history of transient ischemic attack (TIA), and cerebral infarction without residual deficits
CPT/HCPCS: 88305; 45378; 43239; J2001; J2704

== ENCOUNTER → 2023-09-19 | Day surgery (SDC) | payer MEDICARE ==
[~2023-09-19] MED LIST changes: +ALPRAZolam 0.25 MG TAB PO PRN; +ALPRAZolam 0.5 MG TAB PO PRN; +ASPIRIN 325 MG TAB PO STA; +CITALOPRAM HYDROBROMIDE 20 MG TAB PO SCH; +HEPARIN SODIUM 1,000 UN/ML (10ML VL) IV ONE; +HEPARIN SODIUM 1,000 UN/ML (10ML VL) ONE; +HEPARIN SODIUM,PORCINE (1 ML) 2,500 UNIT in SODIUM CHLORIDE 0.9% 250 ML IRRIGATION PRN; +HEPARIN SODIUM,PORCINE 10,000 UNIT in SODIUM CHLORIDE 0.9% 1,000 ML IRRIGATION PRN; +IOPAMIDOL-370 100ML BTL INJ ONE; -LACTATED RINGERS 1,000 ML IV SCH; +LEVOTHYROXINE 88 MCG TAB PO SCH; +LIDOCAINE 1% INJ 10MG/ML (30 ML VIAL-PF) SQ ONE; +METOPROLOL TARTRATE 25 MG TAB PO SCH; +METOPROLOL TARTRATE 5 MG/5 ML VIAL IVP ONE; +NITROGLYCERIN SL TABS 0.4 MG TAB SUBLINGUAL PRN; +NON FORMULARY DRUG (Simvastatin [Simvastatin] 40 MG Tablet) PO SCH; +RX INFO: IV CONTRAST WAS GIVEN 1 EACH MISC MISCELLANE PRN; +SODIUM CHLORIDE 0.9% 1,000 ML IV SCH; +SODIUM CHLORIDE 0.9% 1,000 ML in EMPTY BAG 1 BAG IV SCH; +VERAPAMIL SYRINGE (5 MG/10 ML) INTRAARTER ONE; +fentaNYL (PF) 50 MCG/ML 2 ML AMP IVP ONE; +fentaNYL (PF) 50 MCG/ML 2 ML AMP ONE
[2023-09-19 06:38] LABS: Basophils % (A) 0 %; Eosinophils % (A) 0 %; HCT 33.9 % (34.0-46.0); HGB 11.3 gm/dL (11.4-16.0); Lymphocytes # (A) 0.4 k/uL (1.0-4.8); Lymphocytes % (A) 7 %; MCH 30.6 pg (25.0-35.0); MCHC 33.5 g/dL (31.0-37.0); MCV 91.3 fL (80.0-100.0); Mean Platelet Volume 7.6; Monocytes # (A) 0.2 k/uL (0-1.0); Monocytes % (A) 3 %; Neutrophils # (A) 5.2 k/uL (1.3-7.7); Neutrophils % (A) 89 %; Platelet Count 258 k/uL (150-450); RBC 3.71 m/uL (3.80-5.40); RDW 12.3 % (11.5-15.5); WBC 5.9 k/uL (3.8-10.6)
[2023-09-19 06:59] VITALS: TEMP 98
[2023-09-19 07:00] LABS: African American GFR (CKD) >90 (>60 ml/min/1.73 sqM); Anion Gap 9 mmol/L; Blood Urea Nitrogen 9 mg/dL (7-17); Calcium 9.9 mg/dL (8.4-10.2); Carbon Dioxide 26 mmol/L (22-30); Chloride 98 mmol/L (98-107); Glucose 115 mg/dL (74-99); Non-African American GFR(CKD) >90 (>60 ml/min/1.73 sqM); Sodium 133 mmol/L (137-145)
--- NOTE | 2023-09-19 08:17 | P.CARDCATH ---
Date of Procedure: 09/19/23 Description of Procedure: Cardiac Catheterization: The patient is a 67-year-old female with history of hyperlipidemia, paroxysmal atrial fibrillation who had an abnormal echocardiogram and according calcification and abnormal CT angiogram. Recommendations were made regarding cardiac catheterization, the risks and the complications were discussed with the patient who is in full understanding and agreement. 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 Using Xylocaine Anesthesia and modified Seldinger technique, a 6-Greenlandic sheath was introduced in the right radial artery . Subsequently, selective coronary angiography was performed using a 5-Greenlandic 3.5 bend Marialuisa catheter. Multiple views of the coronary artery including hemiaxial views were obtained. The right Marialuisa catheter was used to cross the aortic valve and LVEDP was calculated. Following that, catheter and sheath were removed. Hemostasis was obtained with deployment of vascular band . There was no immediate complication. Patient was returned to room in stable condition. Of note, the patient received a total of 3500 units of intravenous heparin as well as intra-arterial verapamil. Findings: Fluoroscopy: Calcifications of the coronary arteries was noted Left main: This is a large size vessel, bifurcating into LAD and left circumflex, left main has no obstructive disease LAD: This is a large size vessel, reaching to the apex, giving rise to a moderately sized diagonal branch. The LAD at the takeoff of the first diagonal branch and septal cash control specialist has 20-30% plaque, calcified with no evidence of h igh-grade stenosis Left circumflex: This is a nondominant vessel, giving rise to a large obtuse marginal branch and the obtuse marginal branch has intimal disease of 20-30% with no high-grade stenosis RCA: This is a dominant vessel, large in caliber, bifurcating distally to PDA and PLV the midright coronary artery has intimal disease of 20-30% with no high- grade stenosis Left Ventriculogram: Not performed Hemodynamics: There was no gradient across the aortic valve , LVEDP was 15-18 mmHg Conclusion: 1. Calcified coronary arteries 2. Mild triple-vessel disease 3. Right dominance Recommendations: I have recommended to continue medical therapy with aggressive coronary risks modifications. The findings and the recommendations were discussed with the patient and the family and they were in full understanding and agreement. Duration of sedation is 14 minutes.
[2023-09-19 11:09] VITALS: BP 125/55; PULSE 77; RESP 16
== END | disposition home or self-care (01) ==
LOC: CATHCVL 05:48
PROVIDERS: ATTEND Internal Medicine Interventional Cardiology
DX: I25.10 Atherosclerotic heart disease of native coronary artery without angina pectoris (principal); E07.9 Disorder of thyroid, unspecified; E78.5 Hyperlipidemia, unspecified; Z87.891 Personal history of nicotine dependence; Z79.01 Long term (current) use of anticoagulants; Z79.890 Hormone replacement therapy; Z79.899 Other long term (current) drug therapy
CPT/HCPCS: 93458; 80048; 85025; 99152; C1769 ×2; C1894; J2001; J3010; J1644; Q9967

== ENCOUNTER → 2024-01-13 | Outpatient (CLI) | payer MEDICARE ==
[2024-01-13 09:44] VITALS: BP 100/62; PULSE 62; RESP 16; TEMP 97.8
--- NOTE | 2024-01-13 10:17 | P.HPOB ---
History of Present Illness H&P Date: 01/13/24 Chief Complaint: The patient is here for her routine gynecologic exam and ma mmogram. This is a 68-year-old G2, P2 with an LMP of 2002. The patient is without gynecologic complaints and denies any postmenopausal bleeding. She did not use the estrogen vaginal cream and this was prescribed. She is not interested in using this. Review of Systems The patient's weight has been stable over the last year. She denies respiratory, cardiac, or G.I. problems. Past Medical History Past Medical History: Atrial Fibrillation, CVA/TIA, GERD/Reflux, Hyperlipidemia, Musculoskeletal Disorder, Thyroid Disorder Additional Past Medical History / Comment(s): Possible TIA in the past-no residual effects, Hypothyroidism. Migraine CASEY. Osteoporosis status post 5 years use of Fosamax., Chronic Constipation, paroxysmal atrial fibrillation. 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 Cryotherapy of the cervix in her 20s. History of Any Multi-Drug Resistant Organisms: None Reported Past Surgical History: Tubal Ligation Additional Past Surgical History / Comment(s): Colonoscopy with upper endoscopy in 2022(next after 10yr). Cataracts removed. Past Anesthesia/Blood Transfusion Reactions: No Reported Reaction, Motion Sickness Past Psychological History: Anxiety, Depression Smoking Status: Never smoker Past Alcohol Use History: Occasional Past Drug Use History: None Reported Additional History: She has been since 1976 and is infrequently sexually active. She is retired - Past Family History Father Family Medical History: Coronary Artery Disease (CAD) Additional Family Medical History / Comment(s): Paternal grand mother had breast cancer. Mother Family Medical History: CVA/TIA Brother(s) Family Medical History: Cancer, Myocardial Infarction ([place]) Additional Family Medical History / Comment(s): Esophageal cancer. Another brother had cardiac valve replacement surgery. Medications and Allergies Home Medications Medication Instructions Recorded Confirmed Type Citalopram Hydrobromide [CeleXA] 20 mg PO DAILY 11/14/14 09/19/23 History Levothyroxine Sodium [Synthroid] 100 mcg PO DAILY 02/11/15 09/19/23 History Cholecalciferol (Vitamin D3) 5,000 unit PO DAILY 08/18/18 09/19/23 History [Vitamin D3] Simvastatin 40 mg PO HS 08/24/19 09/19/23 History Multivitamin [Multivitamins Adult 1 each PO DAILY 05/28/22 09/19/23 History Gummies] Metoprolol Tartrate [Lopressor] 12.5 mg PO BID 07/16/23 09/19/23 History Psyllium Husk [Fiber Capsule] 0.4 gm PO DAILY 07/16/23 09/19/23 History Rivaroxaban [Xarelto] 20 mg PO HS 07/16/23 09/19/23 History Allergies Allergy/AdvReac Type Severity Reaction Status Date / Time iv dye Allergy Itching Uncoded 01/13/24 09:40 Exam Vital Signs Temp Pulse Resp BP Pulse Ox 01/13/24 09:41 97.8 F 62 16 100/62 97 Intake and Output 01/12/24 01/13/24 01/13/24 22:59 06:59 14:59 Other: Weight 69.853 kg Height 5 feet 6 inches, weight 154 pounds, BMI 24.9. This is a well-developed well-nourished white female who is alert and oriented times 3 in no acute distress. HEENT: Within normal limits. NECK: Supple without mass or thyromegaly. CHEST AND LUNGS: Clear to auscultation. HEART: Regular rate and rhythm. BREASTS: Are without mass or discharge. AXILLARY EXAM: Negative for adenopathy. BACK: Negative for CVA tenderness. ABDOMEN: Soft, nontender, without palpable masses. PELVIC EXAM: Normal external genitalia with mild atrophy. There is a urethral carbuncle which has a benign appearance and this is stable from her previous exam. Cervix and vagina appear normal mild atrophy. There is no unusual discharge. There is a stable grade 2 uterine prolapse and grade 1-2 cystocele. The uterus is midposition, nongravid size and nontender. There are no palpable adnexal masses or tenderness. RECTAL EXAM: Rectovaginal exam is negative for mass or tenderness and is negative for occult blood. EXTREMITIES: Nontender. IMPRESSION: 1. 68-year-old menopausal female with stable grade 2 uterine prolapse and grade 1-2 cystocele which are asymptomatic. 2. History of osteoporosis status post 5 years use of alendronate which was discontinued in 2022. 3. Stable benign-appearing urethral carbuncle. PLAN: 1. Pap smear was deferred since she had a negative Pap smear cotest on 09/12/2020 2. Self breast awareness was discussed with the patient. We have also discussed symptoms associated with inflammatory breast cancer. 3. Screening mammogram will be done today. 4. Osteoporosis management was discussed. We will plan on repeating the bone density test in 1 year. 5. She was advised to return in one year for her annual well woman exam and as needed.
== END ==
LOC: WWCWWP 09:18
PROVIDERS: ATTEND Obstetrics & Gynecology
DX: Z12.31 Encounter for screening mammogram for malignant neoplasm of breast (principal); M81.0 Age-related osteoporosis without current pathological fracture; N34.0 Urethral abscess; Z80.3 Family history of malignant neoplasm of breast; Z78.0 Asymptomatic menopausal state; Z91.041 Radiographic dye allergy status
CPT/HCPCS: 77063; 77067

== ENCOUNTER → 2025-01-18 | Outpatient (CLI) | payer MEDICARE ==
[2025-01-18 13:24] VITALS: BP 123/71; PULSE 61; RESP 16; TEMP 98.2
--- NOTE | 2025-01-18 13:25 | P.HPOB ---
History of Present Illness H&P Date: 01/18/25 Chief Complaint: The patient is here for her routine gynecologic exam and ma mmogram. This is a 69-year-old G2, P2 with an LMP of 2002. The patient is without gynecologic complaints and denies any postmenopausal bleeding. Review of Systems The patient has gained 4 pounds over the last year. She denies respiratory, cardiac, or G.I. problems. Past Medical History Past Medical History: Atrial Fibrillation, CVA/TIA, GERD/Reflux, Hyperlipidemia, Musculoskeletal Disorder, Thyroid Disorder Additional Past Medical History / Comment(s): Possible TIA in the past-no residual effects, Hypothyroidism. Migraine CASEY. Osteoporosis status post 5 years use of Fosamax., Chronic Constipation, paroxysmal atrial fibrillation. 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 Cryotherapy of the cervix in her 20s. History of Any Multi-Drug Resistant Organisms: None Reported Past Surgical History: Tubal Ligation Additional Past Surgical History / Comment(s): Colonoscopy with upper endoscopy in 2022(next after 10yr). Cataracts removed. Past Anesthesia/Blood Transfusion Reactions: No Reported Reaction, Motion Sickness Past Psychological History: Anxiety, Depression Smoking Status: Never smoker Past Alcohol Use History: Occasional (2-3 drinks per week.) Past Drug Use History: None Reported Additional History: She has been since 1976 and is sexually active. She is retired. - Past Family History Father Family Medical History: Coronary Artery Disease (CAD) Additional Family Medical History / Comment(s): Paternal grand mother had breast cancer. Mother Family Medical History: CVA/TIA Brother(s) Family Medical History: Cancer, Myocardial Infarction ([place]) Additional Family Medical History / Comment(s): Esophageal cancer. Another brother had cardiac valve replacement surgery. Medications and Allergies Home Medications Medication Instructions Recorded Confirmed Type Citalopram Hydrobromide [CeleXA] 20 mg PO DAILY 11/14/14 01/13/24 History Levothyroxine Sodium [Synthroid] 100 mcg PO DAILY 02/11/15 01/13/24 History Cholecalciferol (Vitamin D3) 5,000 unit PO DAILY 08/18/18 01/13/24 History [Vitamin D3] Multivitamin [Multivitamins Adult 1 each PO DAILY 05/28/22 01/13/24 History Gummies] Metoprolol Tartrate [Lopressor] 12.5 mg PO BID 07/16/23 01/13/24 History Rivaroxaban [Xarelto] 20 mg PO HS 07/16/23 01/13/24 History Atorvastatin [Lipitor] 40 mg PO DAILY 01/18/25 01/18/25 History Cyanocobalamin (Vitamin B-12) 1,000 mcg PO DAILY 01/18/25 01/18/25 History [Vitamin B-12] Magnesium Citrate 125 mg PO 01/18/25 History Omeprazole 20 mg PO BID 01/18/25 01/18/25 History Allergies Allergy/AdvReac Type Severity Reaction Status Date / Time iv dye Allergy Itching Uncoded 01/18/25 12:55 Exam Intake and Output 01/17/25 01/18/25 01/18/25 22:59 06:59 14:59 Other: Weight 71.668 kg Height 5 feet 6 inches, weight 158 pounds, BMI 25.5. Blood pressure 123/71, temperature 98.2, pulse 81, pulse oximeter 98% This is a well-developed well-nourished white female who is alert and oriented times 3 in no acute distress. HEENT: Within normal limits. NECK: Supple without mass or thyromegaly. CHEST AND LUNGS: Clear to auscultation. HEART: Regular rate and rhythm. BREASTS: Are without mass or discharge. AXILLARY EXAM: Negative for adenopathy. BACK: Negative for CVA tenderness. ABDOMEN: Soft, nontender, without palpable masses. PELVIC EXAM: Normal external genitalia with mild to moderate atrophy. There is a urethral caruncle which has been noted on previous exams and appears stable and benign. Cervix and vagina appear normal with mild to moderate atrophy. There is no unusual discharge. There is a stable grade 2 uterine prolapse with a grade 2 cystocele.. The uterus is midposition, nongravid size and nontender. There are no palpable adnexal masses or tenderness. RECTAL EXAM: Rectovaginal exam is negative for mass or tenderness and is negative for occult blood. EXTREMITIES: Nontender. IMPRESSION: 1. 69-year-old menopausal female with stable grade 2 uterine prolapse and grade 2 cystocele which are asymptomatic. 2. Stable benign-appearing urethral caruncle. 3. History of osteoporosis status post 5 years use of Fosamax. This was discontinued in approximately 2022. PLAN: 1. Pap smear cotest was performed. If this is negative we will plan on discontinuing Pap smears 2. Self breast awareness was discussed with the patient. We have also discussed symptoms associated with inflammatory breast cancer. 3. Screening mammogram will be done today. 4. Osteoporosis management was discussed. I have stressed the importance of adequate calcium, vitamin D and regular exercise. Recommended amounts of calcium and vitamin D were also discussed. I have recommended repeating the bone density test since it was last done 2 years ago. The order slip was given to the patient for this. 5. Continue conservative management for the small cystocele and small uterine prolapse. 6. She was advised to return in one year for her annual well woman exam and as needed.
--- NOTE | 2025-01-18 13:52 | MM ---
Reason for Exam: Screening (asymptomatic). Last screening mammogram was performed 12 month(s) ago. Patient History: Menarche at age 11. First Full-Term at age 25. Postmenopausal. Patient has history of breast feeding. Paternal grandmother had breast cancer, age 80. Maternal grandmother had breast cancer, age 30. Risk Values: Yu 5 year model risk: 2.1%. NCI Lifetime model risk: 6.4%. Tissue Density: The breasts are heterogeneously dense, which may obscure small masses. Findings: Benign-appearing vascular calcification bilaterally is redemonstrated. There is no suspicious new group of microcalcifications or new suspicious mass in either breast. Overall Assessment: Benign, BI-RAD 2 Management: Screening Mammogram of both breasts in 1 year. . Patient should continue monthly self-breast exams. A clinical breast exam by your physician is recommended on an annual basis. This exam should not preclude additional follow-up of suspicious palpable abnormalities. Note on Yu scores and lifetime risk: 1. A Yu score greater than 3% is considered moderate risk. If this is the case, consider specialist referral to assess eligibility for a risk reducing agent. 2. If overall lifetime risk for the development of breast cancer is 20% or higher, the patient may qualify for future screening with alternating mammogram and breast MRI. [facility], , 01/18/2025 1:50 PM. Electronically signed and approved by: Mika Marie M.D.
== END ==
LOC: WWCWWP 12:08
PROVIDERS: ATTEND Obstetrics & Gynecology
DX: Z12.31 Encounter for screening mammogram for malignant neoplasm of breast (principal); Z01.419 Encounter for gynecological examination (general) (routine) without abnormal findings; N81.4 Uterovaginal prolapse, unspecified; N36.2 Urethral caruncle; M81.0 Age-related osteoporosis without current pathological fracture; Z78.0 Asymptomatic menopausal state; Z91.041 Radiographic dye allergy status
CPT/HCPCS: 77063; 77067

== ENCOUNTER → 2025-01-27 | Outpatient (CLI) | payer MEDICARE ==
--- NOTE | 2025-01-27 08:22 | BD ---
EXAMINATION TYPE: Axial Bone Density DATE OF EXAM: 01/27/2025 CLINICAL HISTORY: 69 years old Female. ICD-10 CODE: Z78.0 POSTMENOPAUSAL , Additional History: Height: 66" Weight: 157lbs FRAX RISK QUESTIONS: Alcohol (3 or more units per day): No Family History (Parent hip fracture): No Glucocorticoids (More than 3mos): No (Ex: prednisone, prednisolone, methylprednisolone, dexamethasone, and hydrocortisone). History of Fracture in Adulthood: No Secondary Osteoporosis: 1. Type 1 Diabetes: No 2. Hyperthyroidism: No 3. Menopause before 45: No 4. Malnutrition: No 5. Chronic liver disease: No Rheumatoid Arthritis: No Current Tobacco Use: No RISK FACTORS HISTORY OF: Hip Fracture (Right/Left): No Spine Fracture: No History of Wrist Fracture: No Surgery to Spine/Hip(right/left)/Wrist (right/left): No MEDICATIONS: Thyroid Medications: Yes Which medication: Levothyroxine How Lon+ years Osteoporosis Medications: No Which medication: Discontinued 5 years ago EXAM MEASUREMENTS: Bone mineral densitometry was performed using the Net Transmit & Receive System. Bone mineral density as measured about the Lumbar spine is: ----- L1-L4(G/cm2): 1.016 T Score Values are as follows: ----- L1: -1.9 ----- L2: -1.7 ----- L3: -0.6 ----- L4: -1.5 ----- L1-L4: -1.4 Z Score Values are as follows: ----- L1: -0.5 ----- L2: -0.2 ----- L3: 0.9 ----- L4: -0.1 ----- L1-L4: 0.1 Bone mineral density has: decreased -1.3% since study of: 01/01/2023 Bone mineral density about the R hip (g/cm2): 0.747 Bone mineral density about the L hip (g/cm2): 0.741 T Score values are as follows: -----R Neck: -1.7 -----L Neck: -2.1 -----R Total: -2.1 -----L Total: -2.1 Z Score values are as follows: -----R Neck: -0.1 -----L Neck: -0.6 -----R Total: -0.8 -----L Total: -0.8 Bone mineral density has: increased 0.1% since study of: 01/01/2023 FRAX%s: The graph provided illustrates a 12.4% chance for a major osteoporotic fx and a 2.5% chance f or the hips probability for fx in 10 years time. IMPRESSION: Osteopenia (T Score between -2.5 and -1). There is slightly increased risk of fracture and the patient may be considered for treatment. Re-Screen 2-5 years. NOTE: T-SCORE=SD OF THE YOUNG ADULT MEAN. [facility], , 01/27/2025 8:20 AM
== END | disposition home or self-care (01) ==
LOC: RADBDWWP 07:44
PROVIDERS: ATTEND Obstetrics & Gynecology
DX: M81.0 Age-related osteoporosis without current pathological fracture (principal); M85.89 Other specified disorders of bone density and structure, multiple sites; Z78.0 Asymptomatic menopausal state
CPT/HCPCS: 77080